=== PATIENT | male | born 1980 | race African-American/Black ===

== ENCOUNTER 2022-03-22 13:38 | Emergency (ER) | payer MEDICAID ==
[~2022-03-22] VITALS: Ht 185.4 cm; Wt 91.0 kg
[2022-03-22] MEDS ORDERED: IBUPROFEN 600MG TABLET PO ONE (14:45)
[2022-03-22 15:03] VITALS: BP 121/78
[2022-03-22] MEDS ORDERED: IBUP-2029 MT (15:58)
== END 2022-03-22 17:00 | disposition home or self-care (01) ==
LOC: ER 13:38
DX: S63.8X1A Sprain of other part of right wrist and hand, initial encounter (principal); X58.XXXA Exposure to other specified factors, initial encounter; Y93.89 Activity, other specified; Y92.89 Other specified places as the place of occurrence of the external cause; Y99.8 Other external cause status
CPT/HCPCS: 29125; 71045; 73130; 99284